=== PATIENT | female | born 1990 | race Caucasian/White ===

== ENCOUNTER 2018-01-23 17:23 | Emergency (ER) | payer OTHER ==
[~2018-01-23] VITALS: Ht 167.6 cm; Wt 49.8 kg
[~2018-01-23 17:23] MED LIST: ANTIVERT25 MG PO; DILANTIN100 MG PO; SEROQUEL100 MG PO; TOPIRAMATE100 MG PO; XANAX0.25 MG PO
[2018-01-23 18:01] LABS: APPEARANCE CLEAR ((CLEAR)); BILIRUBIN NEGATIVE; BLOOD NEGATIVE; COLOR YELLOW ((YELLOW)); GLUCOSE (STRIP) NEGATIVE; KETONES NEGATIVE; LEUKOCYTES NEGATIVE; NITRITE NEGATIVE; PROTEIN (STRIP) NEGATIVE; UCUL ADDED? NO; UROBILINOGEN 0.2 MG/DL (0.2-1.0)
[2018-01-23 18:16] LABS: HEMATOCRIT 31.8 % (36.0-46.0); HEMOGLOBIN 10.7 G/DL (11.9-15.5); MCH 29.7 PG (29.0-34.0); MCHC 33.6 G/DL (30.0-36.0); MCV 88.3 FL (83-99); PLATELET COUNT 336 K/uL (156-360); RBC DIS.WIDTH-CV 15.8 % (11.8-14.6); RBC DIS.WIDTH-SD 51.3 % (39-53); WHITE BLOOD COUNT 6.2 K/uL (4.1-10.2)
[2018-01-23 18:26] LABS: ALBUMIN 4.4 g/dL (3.2-4.8); CHLORIDE 104 mEq/L (99-109); POTASSIUM 3.4 mEq/L (3.7-5.4); SODIUM 132 mEq/L (136-147)
[2018-01-23 18:29] LABS: GLUCOSE 87 mg/dL (70-99); TOTAL PROTEIN 7.1 g/dL (6.4-8.3)
[2018-01-23 18:30] LABS: TOTAL BILIRUBIN 0.3 mg/dL (0.0-1.0)
[2018-01-23 18:32] LABS: ALKALINE PHOSPHATASE 40 IU/L (3-129); CREATININE 0.7 mg/dL (0.6-1.3); GFR ESTIMATE (CALCULATED) > 59 mL/min/
[2018-01-23 18:33] LABS: UREA NITROGEN (BUN) 7 mg/dL (9-23)
[2018-01-23 18:34] LABS: AST (GOT) 15 IU/L (2-34)
[2018-01-23 18:35] LABS: ALT (GPT) 9 IU/L (3-49)
[2018-01-23 18:43] LABS: QUANTITATIVE HCG < 4.0 MIU/ML
[2018-01-23 20:48] LABS: DIRECT BILIRUBIN 0.1 mg/dL (0.0-0.3); LIPASE 48 U/L (1.0-51.0)
[2018-01-24 01:04] LABS: SOURCE SWAB
[2018-01-24] MEDS ORDERED: BENTYL20 MG PO (01:05)
[2018-01-24] MEDS ORDERED: ZOFRAN ODT8 MG PO (01:05)
[2018-01-24 02:31] VITALS: BP 105/75
[2018-01-24 03:26] LABS: CANDIDA DNA PROBE NEGATIVE; GARDNERELLA DNA PROBE POSITIVE; TRICHOMONAS DNA PROBE NEGATIVE
== END 2018-01-24 02:38 | disposition home or self-care (01) ==
LOC: EME 17:23
PROVIDERS: Physician Assistant
DX: R10.9 Unspecified abdominal pain (principal); R11.2 Nausea with vomiting, unspecified; R19.7 Diarrhea, unspecified; E86.0 Dehydration; N83.202 Unspecified ovarian cyst, left side; R56.9 Unspecified convulsions; F17.200 Nicotine dependence, unspecified, uncomplicated; Z87.19 Personal history of other diseases of the digestive system; Z98.890 Other specified postprocedural states; Z90.81 Acquired absence of spleen; Z90.49 Acquired absence of other specified parts of digestive tract; Z88.8 Allergy status to other drugs, medicaments and biological substances
CPT/HCPCS: 74177; 80053; 81003; 82248; 83690; 84702; 85027; 87210; 87480; 87491; 87510; 87591; 87660; 99281; 99285; J1200; J1885; J7030